=== PATIENT | female | born 1965 | race Caucasian/White ===

== ENCOUNTER 2018-08-22 13:56 | Inpatient (IN) | payer BC ==
[~2018-08-22] VITALS: Ht 149.9 cm; Wt 72.8 kg
--- NOTE | 2018-08-22 14:40 | NUR ---
DR ULLOA AT BEDSIDE FOR EVAL
--- NOTE | 2018-08-22 14:45 | NUR ---
EDUCATION COORDINATOR AT BEDSIDE FOR BLOOD DRAW.
[2018-08-22 14:49] LABS: BASOPHILS % (AUTO) 0.4 % (0.0-2.0); EOSINOPHILS % (AUTO) 7.9 % (0.0-6.0); HEMATOCRIT 40 % (33-45); HEMOGLOBIN 13.3 g/dL (11.5-14.8); LYMPHOCYTES # (AUTO) 2.2 /CMM (0.8-4.8); LYMPHOCYTES % (AUTO) 24.4 % (20.0-44.0); MEAN CORPUSCULAR HGB CONC 33 g/dl (31.0-36.0); MEAN CORPUSCULAR VOLUME 88 fL (82-100); MONOCYTES # (AUTO) 0.4 /CMM (0.1-1.30); NEUTROPHILS # (AUTO) 5.6 /CMM (1.8-8.9); NEUTROPHILS % (AUTO) 62.3 % (43.0-81.0); PLATELET COUNT (AUTO) 375 /CMM (150-450); RED BLOOD CELL COUNT(AUTO) 4.56 MIL/uL (4.0-5.2)
[2018-08-22 14:56] LABS: CALCIUM, SERUM 8.9 mg/dL (8.5-10.1); CARBON DIOXIDE 28 mmol/L (21-32); CHLORIDE 104 mmol/L (98-107); CREATININE 0.7 mg/dL (0.6-1.3); GLUCOSE 113 mg/dL (74-106); POTASSIUM 3.8 mmol/L (3.5-5.1); SODIUM SERUM 141 mmol/L (136-145); UREA NITROGEN, BLOOD 20 mg/dL (7-18)
[2018-08-22 15:02] LABS: ALANINE AMINOTRANSFERASE 26 U/L (12-78); ALBUMIN 3.5 g/dL (3.4-5.0); ALKALINE PHOSPHATASE 91 U/L (46-116); ASPARTATE AMINOTRANSFERASE 15 U/L (15-37); BILIRUBIN,TOTAL 0.1 mg/dL (0.2-1.0); TOTAL PROTEIN, SERUM 6.9 g/dL (6.4-8.2)
--- NOTE | 2018-08-22 15:22 | NUR ---
TELE BED 313-1 GIVEN. RN IS ALLISON
--- NOTE | 2018-08-22 15:23 | NUR ---
FIOR WAS CALLED. WAS PAGED
[2018-08-22] MEDS ORDERED: ASPIRIN 81 MG TAB.CHEW ONE (15:29)
[2018-08-22] MEDS ORDERED: ASPIRIN 81 MG TAB.CHEW PO ONE (15:30)
[2018-08-22] MEDS ORDERED: CELE100C98 PO (15:37)
--- NOTE | 2018-08-22 15:57 | NUR ---
[facility] WAS CALLED AND THE DR WAS REPAGED. AWAITING HIS CALL BACK.
[2018-08-22 16:30] VITALS: BP 136/77
--- NOTE | 2018-08-22 16:30 | NUR ---
[employer] WINDEROUTSIDE SALES CONSULTANT NOTE PT ARRIVED TO TELE UNIT VIA GURNEY IN STABLE CONDITION. PT IS A/O X4, AFEBRILE. RESPIRATIONS ARE EVEN AND UNLABORED, NOT IN ANY ACUTE DISTRESS NOTED. PUPILS ARE REACTIVE TO LIGHT, BILATERAL HAND ELECTRICITY TRADER ARE STRONG AND EQUAL. DENIES ANY CHEST PAIN AT THIS TIME, NO C/O SOB, N/V. ABDOMEN IS SOFT AND NONDISTENDED, BOWEL SOUNDS ARE PRESENT IN ALL 4 QUADRANTS UPON AUSCULTATION. LAST BM WAS THIS AM. DENIES ANY BLADDER DISCOMFORT. NO SKIN ISSUES NOTED. SKIN IS INTACT, KEPT CLEAN AND DRY. IV SITE TO LAC G18 INTACT, NO INFILTRATION NOTED. DRESSING KEPT CLEAN AND DRY. SAFETY MEASURES ARE IN PLACE. INSTRUCTED PT TO USE CALL LIGHT WHEN ASSISTANCE IS NEEDED, CALL LIGHT IS LEFT WITHIN REACH. DR. LEROY MADE AWARE OF ADMISSION. WILL CONTINUE TO MONITOR THROUGHOUT SHIFT FOR CONTINUITY OF CARE.
[2018-08-22] MEDS ORDERED: MAG HYDROX/AL HYDROX/SIMETH 30 ML UDC PO PRN (17:00)
[2018-08-22] MEDS ORDERED: ACETAMINOPHEN 325 MG TABLET PO PRN (17:00)
[2018-08-22] MEDS ORDERED: MORPHINE SULFATE INJ 2 MG/ML DISP.SYRIN IV PRN (17:00)
[2018-08-22] MEDS ORDERED: NITROGLYCERIN 0.4 MG/TAB BOTTLE SL PRN (17:00)
[2018-08-22] MEDS ORDERED: MAGNESIUM HYDROXIDE 30 ML UDC PO PRN (17:00)
[2018-08-22] MEDS ORDERED: ONDANSETRON HCL/PF 4 MG/2 ML VIAL IVP PRN (17:00)
[2018-08-22] MEDS ORDERED: Z GUARD REMEDY 2 OZ OINT TP PRN (17:00)
[2018-08-22] MEDS ORDERED: ZOLPIDEM TARTRATE 5 MG TABLET PO PRN (17:00)
[2018-08-22] MEDS ORDERED: HYDROCODONE/APAP 5/325MG 1 EACH TABLET PO PRN (17:00)
--- NOTE | 2018-08-22 18:22 | NUR ---
MS RN CLOSING NOTES NEEDS MET AND RENDERED. PT REMAINS A/OX4, AFEBRILE. RESPIRATIONS ARE EVEN AND UNLABORED, NOT IN ANY ACUTE DISTRESS NOTED. PT DENIES ANY PAIN AT THIS TIME, NO C/O SOB, N/V. IV TO LAC INTACT, NO INFILTRATION NOTED. DRESSING KEPT CLEAN AND DRY. SAFETY MEASURES ARE IN PLACE. REMINDED PT TO USE CALL LIGHT WHEN ASSISTANCE IS NEEDED, CALL LIGHT IS LEFT WITHIN REACH. WILL ENDORSE TO NEXT SHIFT FOR CONTINUITY OF CARE.
--- NOTE | 2018-08-22 19:00 | NUR ---
SIGNALS ANALYST OPENING NOTES Patient received sitting up in bed, alert, oriented x 4. Family at bedside. Breathing even and unlabored. Not in any distress. Tele monitor in place, sinus rhythm 75. No pain or any discomfort as of this time. Call light within easy reach. Bed in low, locked position. Will continue to monitor accordingly
[2018-08-22] MEDS ORDERED: MELA5TAB PO (19:12)
--- NOTE | 2018-08-22 19:25 | NUR ---
RN NOTES Dr. Medina currently at bedside. Informed Dr. Medina that patient is taking melatonin 15mg at night and she is requesting to take it tonight. Pharmacy is already closed. Patient has her own supply. Dr. Medina said ok to give 15mg from patient's supply for tonight.
[2018-08-22 20:00] VITALS: BP 157/83
[2018-08-22 21:15] VITALS: BP 131/76
--- NOTE | 2018-08-22 21:15 | NUR ---
RN NOTES BP rechecked- 131/76 mmHg. No complaints of pain as of this time. Will continue to monitor
--- NOTE | 2018-08-22 22:28 | NUR ---
RN NOTES Patient c/o headache. Tylenol 650mg PO given as ordered. Will continue to monitor
[2018-08-23] VITALS: BP 143/79
[2018-08-23 03:19] LABS: BASOPHILS % (AUTO) 0.2 % (0.0-2.0); EOSINOPHILS % (AUTO) 12.1 % (0.0-6.0); HEMATOCRIT 40 % (33-45); HEMOGLOBIN 13.3 g/dL (11.5-14.8); LYMPHOCYTES # (AUTO) 3.2 /CMM (0.8-4.8); LYMPHOCYTES % (AUTO) 40.4 % (20.0-44.0); MEAN CORPUSCULAR HGB CONC 33 g/dl (31.0-36.0); MEAN CORPUSCULAR VOLUME 87 fL (82-100); MONOCYTES # (AUTO) 0.4 /CMM (0.1-1.30); MONOCYTES % (AUTO) 5.5 % (2.0-12.0); NEUTROPHILS # (AUTO) 3.3 /CMM (1.8-8.9); NEUTROPHILS % (AUTO) 41.8 % (43.0-81.0); PLATELET COUNT (AUTO) 351 /CMM (150-450); WHITE BLOOD COUNT (AUTO) 7.9 K/uL (4.3-11.0)
[2018-08-23 03:32] LABS: CALCIUM, SERUM 8.9 mg/dL (8.5-10.1); CREATININE 0.8 mg/dL (0.6-1.3); PHOSPHORUS 4.9 mg/dL (2.5-4.9); POTASSIUM 3.5 mmol/L (3.5-5.1)
[2018-08-23 03:42] LABS: THYROID STIMULATING HORMONE 1.459 uIU/mL (0.358-3.74)
[2018-08-23 04:00] VITALS: BP 144/77
--- NOTE | 2018-08-23 06:38 | NUR ---
SURVEILLANCE OBSERVER CLOSING NOTES Patient still sleeping in bed, easily arousable. No complaints of chest pain overnight. Tele monitor in place- sinus rhythm 62. Patient remains stable. Will endorse continuity of care to oncoming RN
--- NOTE | 2018-08-23 07:30 | NUR ---
stars specialist Opening Notes Patient asleep, resting in bed. Semi-Fowlers position. Alert and oriented x4, able to make needs known. No complaints of shortness of breath or pain at this time. Respirations even and unlabored on room air, no acute distress noted. External monitoring manager in place, currently reading sinus rhythm at 603 bpm. Peripheral IV to the left AC 18 gauge, intact, patent and saline locked. Updated patient on current plan of care and safety measures. Patient verbalized understanding. Safety and fall precautions in place: bed in lowest and locked position, side rails up x2, bed alarm on, call light and personal possessions within reach. Will continue to monitor and intervene as needed.
[2018-08-23 08:31] VITALS: BP 138/73
--- NOTE | 2018-08-23 13:00 | NUR ---
MS blue print control clerk Notes Patient is alert and oriented x4, able to make needs known. No complaints of shortness of breath, chest pain or pain at this time. Respirations even and unlabored on room air, no acute distress noted. Ambulates with steady gait, vital signs stable. Peripheral IV to the left AC 18 gauge, removed with catheter tip intact. No redness, swelling or bleeding of the site noted. Patient verbalized understanding of discharge instructions, including education about emergency symptoms of chest pain and shortness of breath, and Exitcare, signed forms. Follow-up information for Dr. Lambert rubbing bed operator provided. Skin assessment completed, no issues noted. ID bands removed from patient. Discharged with all personal belongings, form signed. [facility] and left via private car.
== END 2018-08-23 13:05 | disposition home or self-care (01) | DRG 313 ==
LOC: ER 14:02 → TELE 15:42 → MED 08-23 12:21
DX: R07.89 Other chest pain (principal); I10 Essential (primary) hypertension; Z82.49 Family history of ischemic heart disease and other diseases of the circulatory system; E66.9 Obesity, unspecified; E78.5 Hyperlipidemia, unspecified; Z85.3 Personal history of malignant neoplasm of breast; Z80.3 Family history of malignant neoplasm of breast; Z68.32 Body mass index [BMI] 32.0-32.9, adult
CPT/HCPCS: 36415; 71045-TC; 80048-TC; 80061-TC; 80076-TC; 83735-TC; 84100-TC; 84443-TC; 84484-TC; 85025-TC; 87081-TC; 93307-TC; G0378

== ENCOUNTER 2018-09-01 07:52 | Emergency (ER) | payer BC ==
[~2018-09-01] VITALS: Ht 149.9 cm; Wt 72.6 kg
[~2018-09-01 07:52] MED LIST: CELE100C98 PO; MELA5TAB PO
--- NOTE | 2018-09-01 07:55 | NUR ---
PT AMBULATORY TO ER BED 11, C/O NAUSEA AND VOMITING SINCE YESTERDAY. ADMITS TO MARIJUANA USE X 10 YEARS FOR RELAXATION. HYPERTENSIVE WARP DOFFER W/ ACTIVE VOMITING. AWAITING MD [place]NT[place]OS.
--- NOTE | 2018-09-01 08:25 | NUR ---
EXHAUSTER AT BEDSIDE FOR BLOOD DRAW.
[2018-09-01] MEDS ORDERED: FAMOTIDINE/PF INJ 20 MG/2 ML VIAL IV ONE ×2 (08:30→08:32)
[2018-09-01] MEDS ORDERED: IV NS 0.9% 1,000 ML BAG IV ONE (08:30)
[2018-09-01] MEDS ORDERED: ONDANSETRON HCL/PF 4 MG/2 ML VIAL IVP ONE ×2 (08:30→10:30)
[2018-09-01] MEDS ORDERED: ONDANSETRON HCL/PF 4 MG/2 ML VIAL ONE ×2 (08:32→10:30)
[2018-09-01 08:34] LABS: BASOPHILS % (AUTO) 0.1 % (0.0-2.0); HEMATOCRIT 43 % (33-45); HEMOGLOBIN 14.4 g/dL (11.5-14.8); LYMPHOCYTES # (AUTO) 0.8 /CMM (0.8-4.8); LYMPHOCYTES % (AUTO) 7.6 % (20.0-44.0); MEAN CORPUSCULAR HGB CONC 34 g/dl (31.0-36.0); MEAN CORPUSCULAR VOLUME 87 fL (82-100); MONOCYTES # (AUTO) 0.2 /CMM (0.1-1.30); MONOCYTES % (AUTO) 1.6 % (2.0-12.0); NEUTROPHILS # (AUTO) 9.8 /CMM (1.8-8.9); NEUTROPHILS % (AUTO) 90.7 % (43.0-81.0); PLATELET COUNT (AUTO) 420 /CMM (150-450); RED BLOOD CELL COUNT(AUTO) 4.88 MIL/uL (4.0-5.2); WHITE BLOOD COUNT (AUTO) 10.9 K/uL (4.3-11.0)
[2018-09-01 08:43] LABS: CALCIUM, SERUM 9.4 mg/dL (8.5-10.1); CREATININE 0.9 mg/dL (0.6-1.3); POTASSIUM 3.8 mmol/L (3.5-5.1)
--- NOTE | 2018-09-01 08:47 | NUR ---
PT TO RADIOLOGY FOR ABDOMINAL CT SCAN VIA [facility].
[2018-09-01 08:49] LABS: ALBUMIN 4.2 g/dL (3.4-5.0); BILIRUBIN,DIRECT 0.1 mg/dL (0.0-0.2); BILIRUBIN,TOTAL 0.5 mg/dL (0.2-1.0); TOTAL PROTEIN, SERUM 7.8 g/dL (6.4-8.2)
[2018-09-01] MEDS ORDERED: IV NS 0.9% 500 ML BAG IV ONE (10:30)
--- NOTE | 2018-09-01 11:42 | NUR ---
PT FEELING MUCH BETTER, PROVIDED W/ CRACKERS AND ORAL FLUIDS. NO NAUSEA AND VOMITIING NOTED. D/C HOME IN STABLE CONDITION. IV removed. Catheter intact and site benign. Pressure and 4x4 applied to site. No bleeding noted.
[2018-09-01 11:45] VITALS: BP 141/87
== END 2018-09-01 11:46 | disposition home or self-care (01) ==
LOC: ER 07:56
DX: R11.2 Nausea with vomiting, unspecified (principal); I10 Essential (primary) hypertension; I25.10 Atherosclerotic heart disease of native coronary artery without angina pectoris; Z98.890 Other specified postprocedural states; Z85.818 Personal history of malignant neoplasm of other sites of lip, oral cavity, and pharynx; Z60.2 Problems related to living alone; Z79.899 Other long term (current) drug therapy
CPT/HCPCS: 36415; 74176; 80048; 80076; 83690; 85025; 96361; 96374; 96375; 96376; 99284; J2405 ×2; J3490; J7030; J7040